=== PATIENT | female | born 1960 | race Caucasian/White ===

== ENCOUNTER → 2025-02-18 11:57 | Outpatient (REF) | payer OTHER, SELFPAY | LOC: HWRAD 11:57 | DX: M25.561 Pain in right knee (principal); M25.562 Pain in left knee | CPT/HCPCS: 73564 ==

== ENCOUNTER → 2025-02-27 16:27 | Outpatient (REF) | payer OTHER, SELFPAY | LOC: RCS 16:27 | DX: R06.02 Shortness of breath (principal) | CPT/HCPCS: 93306 ==

== ENCOUNTER → 2025-03-04 10:46 | Outpatient (REF) | payer OTHER, SELFPAY | LOC: HWRAD 10:46 | PROVIDERS: ATTENDING PHYSICIAN Student in an Organized Health Care Education/Training Program | DX: M25.551 Pain in right hip (principal); M25.552 Pain in left hip | CPT/HCPCS: 73523 ==